=== PATIENT | female | born 1955 | race Two or more races ===

== ENCOUNTER → 2019-05-06 | Day surgery (SDC) | payer MEDICAID ==
[2019-05-03 10:45] LABS: Basophils # (auto) 0 uL; Basophils % (auto) 0.4 % (0.0-2.0); Eosinophils # (auto) 0 uL; Hematocrit 39.6 % (36.0-46.0); Hemoglobin 13.4 g/dL (12.2-16.2); Lymphocytes # (auto) 2.4 uL; Lymphocytes % (auto) 30.1 % (10.0-50.0); Mean Corpuscular Hemoglobin 28.9 pg (28.0-32.0); Monocytes # (auto) 0.6 uL; Monocytes % (auto) 6.9 % (0.0-12.0); Neutrophils % (auto) 62.6 % (37.0-80.0); Nucleated Red Blood Cells % 0.1 %; Platelet Count (auto) 326 10^3/uL (140-450); Red Blood Cells 4.66 10^6/uL (4.0-5.20); Red Cell Distribution Width 14.3 % (11.8-14.3)
[2019-05-03 10:59] LABS: INR 0.96 (0.9-1.15); Partial Thromboplastin Time 24.2 sec (23.64-32.05)
[~2019-05-06] VITALS: Ht 165.1 cm; Wt 78.9 kg
[~2019-05-06] MED LIST: ASPI-404 PO; LIDOCAINE VISCOUS 2% 15ML UD ONE; METF-372 PO; PRAV20TA3 PO; SODIUM CHLORIDE LOCK 10 ML ONE; diphenhdrAMINE HCL 50 MG/1 ML VL ONE
[2019-05-06] MEDS: fentaNYL CITRATE 100 MCG/2 ML VL ONE ×5 (12:15→12:32)
[2019-05-06] MEDS: MIDAZOLAM HCL 5 MG/ML-1ML VIAL ONE ×5 (12:15→12:32)
[2019-05-06 13:19] VITALS: BP 134/81
== END | disposition home or self-care (01) ==
LOC: GI 09:55
PROVIDERS: ATTEND Internal Medicine Gastroenterology
DX: K63.89 Other specified diseases of intestine (principal); K29.50 Unspecified chronic gastritis without bleeding; B96.81 Helicobacter pylori [H. pylori] as the cause of diseases classified elsewhere; F17.210 Nicotine dependence, cigarettes, uncomplicated; Z79.84 Long term (current) use of oral hypoglycemic drugs; Z79.82 Long term (current) use of aspirin; Z79.899 Other long term (current) drug therapy; Z98.891 History of uterine scar from previous surgery; Z90.49 Acquired absence of other specified parts of digestive tract; Z98.890 Other specified postprocedural states
CPT/HCPCS: 36415; 43239; 45380; 82962; 85025; 85610; 85730; 88305; 88342; J1200; J2250; J3010; J7030; 99152; 99153

== ENCOUNTER → 2022-08-27 | Outpatient (CLI) | payer MEDICAID ==
[~2022-08-27] MED LIST changes: -ASPI-404 PO; +ASPI-543 PO; -LIDOCAINE VISCOUS 2% 15ML UD ONE; -SODIUM CHLORIDE LOCK 10 ML ONE; -diphenhdrAMINE HCL 50 MG/1 ML VL ONE
== END | disposition home or self-care (01) ==
LOC: LAB 06:05
PROVIDERS: ATTEND Internal Medicine Pulmonary Disease
DX: Z01.812 Encounter for preprocedural laboratory examination (principal); Z20.822 Contact with and (suspected) exposure to COVID-19
CPT/HCPCS: 36415; 87426

== ENCOUNTER → 2022-09-02 | Outpatient (CLI) | payer MEDICAID ==
[~2022-09-02] MED LIST changes: +ALBUTEROL SULF 2.5 MG/0.5ML(0.5%) NEB SOLN ONE
== END | disposition home or self-care (01) ==
LOC: RT 08-27 15:46
PROVIDERS: ATTEND Internal Medicine Pulmonary Disease
DX: J44.9 Chronic obstructive pulmonary disease, unspecified (principal)

== ENCOUNTER 2023-11-29 10:07 | Emergency (ER) | payer MEDICAID ==
[~2023-11-29] VITALS: Ht 160 cm; Wt 75.7 kg
[~2023-11-29 10:07] MED LIST changes: -ALBUTEROL SULF 2.5 MG/0.5ML(0.5%) NEB SOLN ONE
[2023-11-29 11:18] VITALS: PULSE 86; RESP 16; TEMP 98.2; O2SAT 97
[2023-11-29] MEDS: KETOROLAC TROMETH 30 MG/ML 1ML VIAL IM ONE (12:37)
[2023-11-29] MEDS ORDERED: IBUP1TAB5 PO (13:52)
[2023-11-29] MEDS ORDERED: CYCL-837 PO (13:52)
[2023-11-29 14:10] VITALS: BP 130/77; PULSE 88; RESP 16; O2SAT 97
[2023-11-29] MEDS ORDERED: PRED20TA2 PO (14:12)
== END 2023-11-29 14:21 | disposition home or self-care (01) ==
LOC: ER 10:07
DX: S43.402A Unspecified sprain of left shoulder joint, initial encounter (principal); E11.9 Type 2 diabetes mellitus without complications; I10 Essential (primary) hypertension; W18.09XA Striking against other object with subsequent fall, initial encounter; Y93.89 Activity, other specified; Y92.89 Other specified places as the place of occurrence of the external cause; Y99.8 Other external cause status
CPT/HCPCS: 73200; 96372; 99285; J1885

== ENCOUNTER 2024-01-15 09:22 | Inpatient (IN) | payer MEDICAID ==
[~2024-01-15] VITALS: Ht 165.1 cm; Wt 81.7 kg
[~2024-01-15 09:22] MED LIST changes: +CYCL-837 PO; +IBUP1TAB5 PO; +PRED20TA2 PO
[2024-01-15 11:30] LABS: Basophils # (auto) 0.1 10 ^3/uL (0-0.2); Basophils % (auto) 0.9 % (0.0-2.0); Eosinophils # (auto) 0 10 ^3/uL (0-0.8); Hematocrit 40.6 % (36.0-46.0); Hemoglobin 13.4 g/dL (12.2-16.2); Lymphocytes # (auto) 1.7 10 ^3/uL (0.4-5.4); Lymphocytes % (auto) 23.9 % (10.0-50.0); Mean Corpuscular Hemoglobin 28.2 pg (28.0-32.0); Mean Corpuscular Volume 85.6 fL (80.0-100.0); Monocytes # (auto) 0.5 10 ^3/uL (0-1.3); Monocytes % (auto) 6.6 % (0.0-12.0); Neutrophils # (auto) 4.8 10 ^3/uL (1.6-8.6); Neutrophils % (auto) 68.6 % (37.0-80.0); Nucleated Red Blood Cells % 0.2 %; Platelet Count (auto) 182 10^3/uL (140-450); Red Blood Cells 4.75 10^6/uL (4.0-5.20); Red Cell Distribution Width 15.2 % (11.8-14.3); White Blood Cell 6.9 10^3/uL (4.4-10.8)
[2024-01-15 11:42] LABS: Chloride 110 mmol/L (98-107); Potassium 3.9 mmol/L (3.5-5.1); Sodium 140 mmol/L (136-145)
[2024-01-15 11:43] LABS: Anion Gap 3 (5-15); Calcium 9.9 mg/dL (8.7-10.4); Carbon Dioxide 27 mmol/L (20-30)
[2024-01-15 11:48] LABS: BUN/Creatinine Ratio 16.3 (10.0-20.0); Blood Urea Nitrogen 14 mg/dL (9-23); Glucose 104 mg/dL (74-106)
[2024-01-15] MEDS ORDERED: MORPHINE SULFATE 4 MG/ML SYR/VIAL IV ONE (12:30)
[2024-01-15 12:46] VITALS: PULSE 73; RESP 18; O2SAT 100
[2024-01-15] MEDS: SODIUM CHLORIDE 0.9% 1,000 ML IV ONE ×2 (13:03→17:30)
[2024-01-15] MEDS: ONDANSETRON HCL 4 MG/2 ML VIAL IV ONE (13:03)
[2024-01-15] MEDS: KETOROLAC TROMETH 30 MG/ML 1ML VIAL IV ONE (13:04)
[2024-01-15 13:07] LABS: Urine WBC None Seen /hpf (0 - 5)
[2024-01-15 13:21] LABS: Urine Bacteria FEW /hpf (None Seen); Urine Blood Negative /uL (Negative); Urine Clarity Clear (Clear); Urine Color Light-Yellow (Yellow); Urine Hyaline Cast FEW /lpf (0 - 2); Urine Mucus FEW (None Seen); Urine Protein, UAD Negative (Negative); Urine Specific Gravity 1.022 (1.001-1.035); Urine Urobilinogen Normal (Negative)
[2024-01-15] MEDS ORDERED: DEXTROSE (50%) 50ML SYRG IV PRN (14:45)
[2024-01-15] MEDS ORDERED: CYCLOBENZAPRINE HCL 10 MG TAB PO PRN (15:30)
[2024-01-15] MEDS: PANTOPRAZOLE 40 MG/10 ML VIAL INJ IV SCH (16:50)
[2024-01-15] MEDS: LACTATED RINGER'S 1,000 ML IV ONE (16:51)
[2024-01-15] MEDS: ACCU-CHEK COMFORT CURVE STRIP VI SCH (16:55)
[2024-01-15] MEDS: InsuLIN REG 1unit/0.01ml Soln (100units/ml) SC SCH (16:55)
[2024-01-15] MEDS ORDERED: DOCUSATE SOD 100 MG CAP PO PRN (17:30)
[2024-01-15] MEDS ORDERED: HYDROmorphone HCL 2 MG/ML VL/or syr IV PRN (17:30)
[2024-01-15] MEDS ORDERED: ONDANSETRON HCL 4 MG/2 ML VIAL IV PRN (17:30)
[2024-01-15] MEDS ORDERED: ACETAMINOPHEN 325 MG TAB PO PRN (17:30)
[2024-01-15 19:10] VITALS: RESP 18; O2SAT 100
[2024-01-15] MEDS: HYDROcodone-ACET 5/325MG TAB PO PRN (21:31)
[2024-01-15] MEDS: SODIUM CHLOR 0.9% PF (SALINE LOCK) 10ML VIAL/SYR IV SCH (22:00)
[2024-01-15 23:53] VITALS: BP 140/75; PULSE 75; RESP 20; TEMP 97.6; O2SAT 97
[2024-01-16 01:00] VITALS: BP 125/68; PULSE 81; RESP 18; TEMP 97.6; O2SAT 97
[2024-01-16 05:00] VITALS: BP 114/66; PULSE 84; RESP 18; TEMP 97.4; O2SAT 93
[2024-01-16 08:00] VITALS: PULSE 75; RESP 18
[2024-01-16 09:00] VITALS: BP 135/71; PULSE 76; RESP 20; TEMP 98.4; O2SAT 95
[2024-01-16] MEDS ORDERED: DICY20TA PO (09:18)
[2024-01-16] MEDS ORDERED: ATOR40TA52 PO (09:18)
[2024-01-16] MEDS ORDERED: RIVA20TA PO (09:18)
[2024-01-16] MEDS ORDERED: PANT40T PO (09:18)
[2024-01-16] MEDS ORDERED: FAMO-68 PO (09:18)
[2024-01-16] MEDS ORDERED: GABA-339 PO (09:18)
[2024-01-16] MEDS ORDERED: METO25TA93 PO (09:18)
[2024-01-16] MEDS: ASPirin-EC 81 mg tab PO SCH (10:00)
[2024-01-16] MEDS: PRAVASTATIN SODIUM 20 MG TAB PO SCH (10:00)
[2024-01-16] MEDS ORDERED: ENOXAPARIN SOD 40 MG/0.4 ML SYRINGE SC SCH (10:00)
[2024-01-16] MEDS: ENOXAPARIN SOD 40 MG/0.4 ML SYRINGE SC SCH (10:00)
[2024-01-16] MEDS ORDERED: TRAZ-227 PO (12:10)
[2024-01-16] MEDS: levoFLOXacin 500MG 100 ML IV ONE (12:45)
[2024-01-16 13:00] VITALS: BP 128/61; PULSE 89; RESP 20; TEMP 98; O2SAT 95
[2024-01-16 17:00] VITALS: BP 168/95; PULSE 93; RESP 18; TEMP 98; O2SAT 97
[2024-01-17] MEDS ORDERED: levoFLOXacin 500MG 100 ML IV SCH (10:00)
== END 2024-01-16 18:00 | disposition home or self-care (01) | DRG 347 ==
LOC: ER 09:22 → WEST WING 17:20 → OVERFLOW 17:20 → WEST WING 22:31
PROVIDERS: ADMIT Internal Medicine; ATTEND Internal Medicine
DX: M43.16 Spondylolisthesis, lumbar region (principal); E11.9 Type 2 diabetes mellitus without complications; R10.9 Unspecified abdominal pain; I10 Essential (primary) hypertension; E66.9 Obesity, unspecified; J98.11 Atelectasis; Z79.4 Long term (current) use of insulin; Z79.899 Other long term (current) drug therapy; Z68.30 Body mass index [BMI] 30.0-30.9, adult
CPT/HCPCS: 36415; 71045; 72100; 72170; 74176; 80048; 81001; 82962; 84484; 85025; 96361; 96374; 96375; 99291; G0378; J1815; J1885; J1956; J2405; J2470